=== PATIENT | male | born 1950 | race Caucasian/White ===

== ENCOUNTER 2017-12-05 21:39 | Emergency (ER) | payer OTHER ==
--- NOTE | 2017-12-05 22:35 | EDM.PDOC ---
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 - Related Data Allergies Allergy/AdvReac Type Severity Reaction Status Date / Time No Known Allergies Allergy Verified 12/05/17 22:09 Home Meds: Home Meds Aspirin 1 tab PO DAILY 12/05/17 [History] Carvedilol [Coreg] 12.5 mg PO BID 12/05/17 [History] Furosemide [Lasix] 20 tab PO DAILY 12/05/17 [History] Insulin Glarg,Human.Rec.Analog [Lantus] 70 units SUBCUT BID 12/05/17 [History] Rosuvastatin [Crestor] 40 mg PO DAILY 12/05/17 [History] Tamsulosin [Tamsulosin 24 Hr] 0.4 mg PO DAILY 12/05/17 [History] metFORMIN [Glucophage] 1,000 mg PO DAILY 12/05/17 [History] Past Medical History Cardiovascular History: Reports: Bypass, CAD, High Cholesterol, Hypertension, OR Genitourinary History: Reports: Urinary Incontinence Endocrine/Metabolic History: Reports: Diabetes, Type II Social & Family History - Tobacco Use Smoking Status *Q: Unknown Ever Smoked ED ROS GENERAL - Review of Systems Review Of Systems: See Below Constitutional: Reports: Weakness, Fatigue HEENT: Reports: No Symptoms Respiratory: Reports: No Symptoms Cardiovascular: Reports: No Symptoms Endocrine: Reports: High Glucose GI/Abdominal: Reports: No Symptoms : Reports: No Symptoms Musculoskeletal: Reports: No Symptoms Skin: Reports: No Symptoms Neurological: Reports: Paresthesia, Tingling ED EXAM, NEURO - Physical Exam Exam: See Below Text/Narrative:: General: Elderly male, not in any distress, alert and oriented x3 HEENT: head is atraumatic normocephalic, eyes pupils equal round reactive to light, sclera clear no conjunctivitis appreciated. Ears tympanic membranes clear and [place] landmarks and light reflex are present bilaterally canals are clear. Nose no septal deviation, nares are clear, no blood present. Mouth mucosa is moist and pink no erythema or exudate noted in soft palate, tongue is midline uvula is midline, dentition is intact. Neck: Supple no thyromegaly no tracheal deviation. Nodes: Cervical nodes subclavicular nodes nontender no palpable lymphadenopathy noted. Lungs: clear to auscultation bilaterally with symmetrical respirations, no adventitious noise appreciated. CV: Regular rate and rhythm S1 and S2 appreciated grade 2/6 systolic ejection murmur best appreciated left sternal border, no rubs or gallops noted. Abdomen: Soft, nontender, no palpable masses or organomegaly appreciated, no distention no guarding bowel sounds are present, . Neuro: Cranial nerves II through XII grossly intact Skin: Warm and dry, intact Extremities: No lower extremity edema appreciated, pedal pulse is +2. Course - Vital Signs Last Recorded V/S: Last Vital Signs Temp Pulse 91 12/05/17 23:00 Resp 19 12/05/17 23:00 BP 147/90 H 12/05/17 23:00 Pulse Ox 95 12/05/17 23:00 - Orders/Labs/Meds Orders: Active Orders 24 hr Category Date Time Status Cardiac Monitoring [RC] .As Directed Care 12/05/17 22:31 Active EKG Documentation Completion [RC] ASDIRECTED Care 12/05/17 22:32 Active UA W/MICROSCOPIC [URIN] Stat Lab 12/05/17 22:49 Ordered EKG 12 Lead [EK] Stat Ther 12/05/17 22:32 Ordered Labs: Laboratory Tests 12/05/17 12/05/17 12/05/17 Range/Units 22:31 22:40 22:40 WBC 5.3 (4.5-11.0) K/uL RBC 3.77 L (4.30-5.90) M/uL Hgb 10.6 L (12.0-15.0) g/dL Hct 31.2 L (40.0-54.0) % MCV 83 (80-98) fL MCH 28 (27-31) pg MCHC 34 (32-36) % Plt Count 148 L (150-400) K/uL Neut % (Auto) 64 (36-66) % Lymph % (Auto) 25 (24-44) % [place] % (Auto) 8 H (2-6) % Eos % (Auto) 3 (2-4) % Baso % (Auto) 0 (0-1) % Sodium 137 L (140-148) mmol/L Potassium 4.1 (3.6-5.2) mmol/L Chloride 98 L (100-108) mmol/L Carbon Dioxide 26 (21-32) mmol/L Anion Gap 17.1 H (5.0-14.0) mmol/L BUN 50 H (7-18) mg/dL Creatinine 2.7 H (0.8-1.3) mg/dL Est Cr Clr Drug Dosing 27.04 mL/min Estimated GFR (MDRD) 24 L (>60) Glucose 374 H (74-106) mg/dL Lactic Acid 3.2 H (0.4-2.0) mmol/L Calcium 8.0 L (8.5-10.1) mg/dL Total Bilirubin 0.3 (0.2-1.0) mg/dL AST 10 L (15-37) U/L ALT 20 (12-78) U/L Alkaline Phosphatase 58 (46-116) U/L CK-MB (CK-2) 1.5 (0-3.6) mg/mL Troponin I < 0.017 (0.000-0.056) ng/mL Total Protein 6.0 L (6.4-8.2) g/dL Albumin 3.1 L (3.4-5.0) g/dL Globulin 2.9 (2.3-3.5) g/dL Albumin/Globulin Ratio 1.1 L (1.2-2.2) Lipase 240 (73-393) U/L Urine Color Urine Appearance Urine pH (4.5-8.0) Ur Specific [place] (1.008-1.030) Urine Protein (NEGATIVE) mg/dL Urine Glucose (UA) (NEGATIVE) mg/dL Urine Ketones (NEGATIVE) mg/dL Urine Occult Blood (NEGATIVE) Urine Nitrite (NEGAITVE) Urine Bilirubin (NEGATIVE) Urine Urobilinogen (NORMAL) mg/dL Ur Leukocyte Esterase (NEGATIVE) Urine RBC (0-5) Urine WBC (0-5) Ur Epithelial Cells Amorphous Sediment Urine Bacteria Urine Mucus 12/05/17 Range/Units 22:49 WBC (4.5-11.0) K/uL RBC (4.30-5.90) M/uL Hgb (12.0-15.0) g/dL Hct (40.0-54.0) % MCV (80-98) fL MCH (27-31) pg MCHC (32-36) % Plt Count (150-400) K/uL Neut % (Auto) (36-66) % Lymph % (Auto) (24-44) % [place] % (Auto) (2-6) % Eos % (Auto) (2-4) % Baso % (Auto) (0-1) % Sodium (140-148) mmol/L Potassium (3.6-5.2) mmol/L Chloride (100-108) mmol/L Carbon Dioxide (21-32) mmol/L Anion Gap (5.0-14.0) mmol/L BUN (7-18) mg/dL Creatinine (0.8-1.3) mg/dL Est Cr Clr Drug Dosing mL/min Estimated GFR (MDRD) (>60) Glucose (74-106) mg/dL Lactic Acid (0.4-2.0) mmol/L Calcium (8.5-10.1) mg/dL Total Bilirubin (0.2-1.0) mg/dL AST (15-37) U/L ALT (12-78) U/L Alkaline Phosphatase (46-116) U/L CK-MB (CK-2) (0-3.6) mg/mL Troponin I (0.000-0.056) ng/mL Total Protein (6.4-8.2) g/dL Albumin (3.4-5.0) g/dL Globulin (2.3-3.5) g/dL Albumin/Globulin Ratio (1.2-2.2) Lipase (73-393) U/L Urine Color Yellow Urine Appearance Clear Urine pH 5.0 (4.5-8.0) Ur Specific [place] 1.015 (1.008-1.030) Urine Protein 500 H (NEGATIVE) mg/dL Urine Glucose (UA) 1000 H (NEGATIVE) mg/dL Urine Ketones Negative (NEGATIVE) mg/dL Urine Occult Blood Trace (NEGATIVE) Urine Nitrite Negative (NEGAITVE) Urine Bilirubin Negative (NEGATIVE) Urine Urobilinogen Normal (NORMAL) mg/dL Ur Leukocyte Esterase Negative (NEGATIVE) Urine RBC 0-5 (0-5) Urine WBC Not seen (0-5) Ur Epithelial Cells Not seen Amorphous Sediment Not seen Urine Bacteria Not seen Urine Mucus Not seen Departure - Departure Time of Disposition: 23:52 Disposition: Home, Self-Care 01 Condition: Poor Clinical Impression: Weakness - Discharge Information Referrals: PCP,None [Primary Care Provider] - Forms: ED Department Discharge Additional Instructions: Please report to home clinic as soon as possible, call return to the emergency department worsening of symptoms - My Orders Last 24 Hours: My Active Orders 12/05/17 22:31 Cardiac Monitoring [RC] .As Directed 12/05/17 22:32 EKG Documentation Completion [RC] ASDIRECTED EKG 12 Lead [EK] Stat 12/05/17 22:49 UA W/MICROSCOPIC [URIN] Stat - Assessment/Plan Last 24 Hours: My Active Orders 12/05/17 22:31 Cardiac Monitoring [RC] .As Directed 12/05/17 22:32 EKG Documentation Completion [RC] ASDIRECTED EKG 12 Lead [EK] Stat 12/05/17 22:49 UA W/MICROSCOPIC [URIN] Stat Plan: Assessment Acuity = acute Site and laterality = weakness, and patient with known history of diabetes mellitus type 2 as well as chronic renal failure Etiology = probably related to worsening renal function Manifestations = peripheral neuropathy Location of injury = Home Lab values = hemoglobin low at 10.6 consistent with normochromic anemia creatinine elevated at 2.7 consistent chronic renal failure stage G for, lactic acid elevated at 3.2 consistent lactic acidosis, troponin negative, urinalysis reveals 500 protein consistent proteinuria glucose consistent glucose urea. EKG reveals a sinus rhythm there is no atrial enlargement no ventricular enlargement T wave inversions aVL no ST changes or depressions Plan I did offer hospital admission for further evaluation and workup he declined would prefer to go home and he is going to return to the [facility] for further evaluation This note was dictated using [employer] voice recognition software please call with any questions on syntax or grammar.
== END 2017-12-06 00:46 | disposition home or self-care (01) ==
LOC: JP.ED 21:39
DX: R53.1 Weakness (principal); I12.9 Hypertensive chronic kidney disease with stage 1 through stage 4 chronic kidney disease, or unspecified chronic kidney disease; N18.5 Chronic kidney disease, stage 5; I25.2 Old myocardial infarction; E11.22 Type 2 diabetes mellitus with diabetic chronic kidney disease; Z79.82 Long term (current) use of aspirin; Z79.4 Long term (current) use of insulin; Z79.899 Other long term (current) drug therapy
CPT/HCPCS: 36415; 36600; 80053; 81001; 82140; 82553; 82803; 83605; 83690; 84484; 85025; 93005; 99283; 99284-25